=== PATIENT | male | born 1950 | race Caucasian/White ===

== ENCOUNTER 2016-11-19 15:37 | Observation (INO) | payer OTHER ==
--- NOTE | 2016-11-19 16:35 | RAD ---
EXAM: Chest,2 Views CLINICAL INDICATION: 66-year-old male status post ablation. TECHNIQUE: Two-view, PA and lateral projections of the chest were obtained. COMPARISON: None. FINDINGS: Unremarkable cardiac and mediastinal silhouette. Heart size is normal. Median sternotomy wires. Tortuous atherosclerotic thoracic aorta. Lungs are clear without focal opacity, pneumothorax or pleural effusions. The visualized bones are within normal limits. IMPRESSION: No acute cardiopulmonary abnormalities. Electronically signed by: Tamiko Brandt MD 11/19/2016 4:33 PM CDT Workstation: [id number]
[2016-11-19] MEDS ORDERED: SODIUM CHLORIDE 0.9% 1000ML 500 ML IVS ONE (17:13)
--- NOTE | 2016-11-19 17:46 | ED.PDOC ---
History of Present Illness - General Chief Complaint: Cardiovascular Problem Stated Complaint: Irregular heart rate/rhythm Time Seen by Provider: 11/19/16 15:53 Source: patient Exam Limitations: no limitations - History of Present Illness Initial Comments: the patient is a 66-year-old male presenting to the emergency room secondary tofeeling of mild fatigue associated with a heart rate below 40 when he checked his blood pressure today. [facility] and recently had a failed ablation done for PVCs approximately7 days ago. the patient was monitored for a further 3 days and then released with sotalol at 120 mg twice daily. 2 days after that the patient started feeling some fatigue. He does feel palpitations occasionally but that is not new. He has not had any syncope or near-syncope. He is not having any chest pain or significant shortness of breath. No new swelling. He is anticoagulated. Severity: mild Improving Factors: nothing Worsening Factors: nothing Associated Symptoms: malaise Allergies/Adverse Reactions: Allergies NATALIA Inhibitors Allergy (Verified 11/19/16 15:55) Other Causes his "throat to tickle" Review of Systems - Review of Systems Constitutional: States: malaise EENTM: States: no symptoms reported Respiratory: States: no symptoms reported Cardiology: States: palpitations Gastrointestinal/Abdominal: States: no symptoms reported Genitourinary: States: no symptoms reported Musculoskeletal: States: no symptoms reported Skin: States: no symptoms reported Neurological: States: no symptoms reported Endocrine: States: no symptoms reported Hematologic/Lymphatic: States: no symptoms reported Past Medical History (General) - Patient Medical History Hx Stroke: No Hx Cardiac Disorders: Yes - hypercholesterolemia; A fib Hx Congestive Heart Failure: No Hx Diabetes: Yes Hx Cancer: Yes - Skin CA Surgical History: colectomy, coronary bypass surgery - Vaccination History Hx Influenza Vaccination: Yes - 2015 Hx Pneumococcal Vaccination: Yes - Social History Hx Tobacco Use: No Family Medical History - Family History Father Living Status: Cause of : [place] Physical Exam - Physical Exam General Appearance: Alert, Comfortable, No apparent distress Eye Exam: bilateral normal Ears, Nose, Throat: hearing grossly normal, normal ENT inspection, normal pharynx Neck: non-tender, full range of motion, supple Cardiovascular/Chest: normal peripheral pulses, other - trace bilateral chronic edema. irregular rhythm Gastrointestinal/Abdominal: non tender - ., soft Back Exam: normal inspection, no CVA tenderness Extremity: normal range of motion, non-tender, normal inspection, no pedal edema , normal capillary refill Neurologic: potline monitor II-XII nml as tested, alert, normal mood/affect, oriented x 3 Skin Exam: normal color Comments: Vital Signs - 24 hr 11/19/16 11/19/16 15:42 17:15 Temperature 98.3 F Pulse Rate [ 36 L Apical] Respiratory 20 Rate Blood Pressure 128/68 144/62 [Left Arm] O2 Sat by Pulse 97 Oximetry Progress - Progress Progress: 11/19/16 17:48 the patient is a 66-year-old male presenting with significant bradycardia with a pulse down in the 30s but an adequate blood pressure. He appears to be perfusing adequately. He was recently started on a higher dose sotalol. I have discussed this patient with the ER physician at the [facility], Dr. Vivas, who has agreed to have the patientbe admitted here and observed overnight and restarted on a lower sotalol dose. The patient apparently has a appointment with his service center representative at the [place] later this month. He is additionally on colchicine as part of the treatment. Since that time the patient has been admitted here his pulse is actually increased from the mid 30s up to the low 50s. He is feeling better. The patient does have an elevation of his heart enzymes which is consistent with the six-hour ablation performed a week ago. It is however still recommended to repeat these enzymes later this day to make sure there is no upward trend, though one is not suspected. The plan will be to restart the patient on sotalol 80 mg twice a day tomorrow morning. - Results/Orders Results/Orders: Laboratory Tests 11/19/16 11/19/16 11/19/16 16:00 16:00 16:00 WBC 8.5 RBC 5.23 Hgb 14.9 Hct 44.9 MCV 85.8 MCH 28.5 MCHC 33.2 RDW 14.8 H Plt Count 192 MPV 8.4 Absolute Neuts (auto) 5.10 Absolute Lymphs (auto) 2.30 Absolute Monos (auto) 0.80 Absolute Eos (auto) 0.20 Absolute Basos (auto) 0.10 Neutrophils % 59.9 Lymphocytes % 27.0 Monocytes % 9.2 H Eosinophils % 2.6 Basophils % 1.3 PT 15.6 H INR 1.380 PTT (SP) 39.3 H Sodium 140 Potassium 4.1 Chloride 102 Carbon Dioxide 27 Anion Gap 15.1 BUN 43 H Creatinine 1.67 H BUN/Creatinine Ratio 25.7 H Random Glucose 126 H Serum Osmolality 291.8 Calcium 10.1 Magnesium 1.2 L Total Bilirubin 0.8 AST 20 ALT 27 Alkaline Phosphatase 123 H Creatine Kinase 186 H CK-MB (CK-2) 9.5 H* CK-MB (CK-2) % 5.11 H Troponin I 0.37 H* B-Natriuretic Peptide 374.0 H* Serum Total Protein 7.7 Albumin 4.1 Globulin 3.6 H Albumin/Globulin Ratio 1.1 TSH 0.17 L EKG shows bigeminy. There is mild expiratory left axis deviation. There is left atrial dilation and early right bundle branch pattern. Nonspecific ST segment changes. chest x-ray appears benign. Departure - Departure Clinical Impression: Bradycardia with 31-40 beats per minute Disposition: Admit Patient Decision To Admit - Decistion To Admit Decision to Admit Reason: Medical Nature Decision to Admit Date: 11/19/16 Decision to Admit Time: 17:51
--- NOTE | 2016-11-19 18:19 | HP ---
SUPERVISING PHYSICIAN: Efrain Abbott MD CHIEF COMPLAINT: Irregular heart rate. HISTORY OF PRESENT ILLNESS: Mr. Marlow is a 66 year-old male patient that initially presented to the Emergency Room secondary to just not feeling well with some mild fatigue with a noted heart rate below 40 when he checked his blood pressure at home. He is a patient of the [place] system and had recently had an ablation procedure done in efforts to alleviate chronic PVCs in the last 7 days with the procedure failing to succeed with the patient being started on Sotalol at 120 mg twice a day. Approximately 2 days after starting this medication, he started having some fatigue and noticed some palpitations occasionally but denied any syncopal or near syncopal episodes. He denied any chest pains or shortness of breath. He is on chronic anticoagulation therapy with Xarelto. In the Emergency Department, his EKG showed that he was having bigeminy with a possible early right bundle branch block but no nonspecific ST changes with a heart rate of 34. Laboratory studies showed CBC unremarkable. Coagulation studies an elevated PT/PTT, however, the patient is on Xarelto. His chemistries showed normal electrolytes but his BUN was elevated at 43, creatinine1 .67. It was also noted that he had a significant low magnesium at 1.2 as well as cardiac enzymes showing a troponin of 0.37 with a BNP of 374. Dr. Abbott, Emergency Room physician, contacted the [place] system and discussed with his breakfast supervisor, the patient's symptoms. It was Dr. Vivas, who recommended that the patient be admitted overnight for observation and restarted on a lower Sotalol dose of 80 mg b.i.d. compared to the initial 120 mg b.i.d. It was noted that he did have an elevation of his cardiac enzymes, however, he did have a well over 6- hour ablation performed within the last 7 days. Given the patient's symptomatic bradycardia and history, the patient is to be placed in observation. At time of admission to the medical/surgical floor, his heart rate was actually showing to be in the 80s and he was showing to be hemodynamically stable. PAST MEDICAL HISTORY: 1. Chronic arrhythmia with multifocal PVCs, just recently having ablation therapy that failed to succeed in alleviating symptoms with the patient being started on Sotalol. 2. Hypertension. 3. Type 2 diabetes mellitus on insulin. 4. History of gout. 5. B12 deficiency. 6. History of bilateral lower extremity edema. PAST SURGICAL HISTORY: 1. Quadruple bypass in 2008. 2. He had 18 inches of his colon removed in 2013 secondary to polyps. 3. Tonsillectomy and adenoidectomy as a child. CURRENT MEDICATIONS: 1. Sotalol 120 mg b.i.d. 2. Xarelto 20 mg daily. 3. Aspirin 81 mg daily. 4. Metformin 850 mg t.i.d. 5. Losartan 25 mg daily. 6. Humulin-N 37 units b.i.d. 7. Novolin-R 5 units subcutaneous daily. 8. Gabapentin 300 mg twice a day. 9. Lasix 40 mg daily. 10. B12, 1000 mcg daily. 11. Colchicine 0.6 mg twice a day. 12. Lipitor 40 mg at bedtime. ALLERGIES: NATLAIA INHIBITORS FAMILY HISTORY: Strong history of cardiovascular disease. SOCIAL HISTORY: The patient is retired, previously worked as a salesman for [employer]. He is a retired of [employer]. He is , has a history of smoking approximately one pack a day for over 20 years but quit smoking in 2008. He does note that he drinks alcohol on an occasional basis which includes a beer, tequila or whiskey. REVIEW OF SYSTEMS: PHYSICAL EXAMINATION: VITAL SIGNS: In the Emergency Room, heart rate 36 with a blood pressure of 126 /68 with [id number] pacing system 20, saturation 97%. Temperature 98.3. Upon admission to the medical/surgical floor, heart rate was 50s to 60s with blood pressure 110/80, saturation 96% on room air at rest. Admission weight 99.7 kg. GENERAL: The patient is well-nourished, well-hydrated, appears to be in no acute distress. HEENT: Tympanic membranes clear bilaterally. Oropharynx pink and moist without any lesions. NECK: Supple, non-tender with full range of motion. No jugular venous distention noted. CHEST: Lungs clear to auscultation bilaterally without any rhonchi, wheezes or rales. CARDIOVASCULAR: Irregular rate and rhythm with no appreciable murmurs, rubs, or gallops. ABDOMEN: Non-tender, soft but obese with positive bowel sounds. EXTREMITIES: No cyanosis, clubbing, or edema. NEUROLOGIC: Cranial nerves II through XII grossly intact. He was alert and oriented x 3. Facial features were symmetrical. Extraocular movements within normal limits. There was no nystagmus. There was no notable neuro motor or sensory deficits. LABORATORY: CBC showed a white count of 8.5, hemoglobin 14.9, hematocrit 44.9, platelet count 192,000, differential within normal limits. Coagulation studies showed a slightly elevated PT of 15.6, PTT 39.3. Chemistries showed normal electrolytes. Potassium 4.1, BUN elevated at 43, creatinine 1.67, glucose 93. Serum osmolality 291. Magnesium 1.2. Alkaline phosphatase elevated at 123. All other liver functions were within normal limits. CK was elevated at 186 with troponin of 0.37. BNP was 374. Urinalysis pending. RADIOLOGY: Chest x-ray 2-view in the Emergency Room and per radiology interpretation there was no acute cardiopulmonary abnormalities noted. ASSESSMENT: 1. Symptomatic bradycardia with a history of abnormal irregular heart beat having recently had an ablation procedure having failed to resolve abnormal. rhythms with the patient having been started on Sotalol at 120 mg daily felt t9o be the etiology of his bradycardia with no reported chest pain. 2. Elevated troponin in a patient with recently having, within the last week, extensive ablation therapy with the patient without any reported chest pains or shortness of breath on admission. 3. Hypertension. 4. Type 2 diabetes mellitus on insulin. 5. Gout. 6. History of bilateral lower extremity edema. 7. Renal insufficiency with unknown history, possibly felt to be secondary to prerenal azotemia, dehydration and some exacerbation from past procedures within the last 7 days requiring intravenous contrast. PLAN: The patient will be placed in observation tonight and started on Sotalol once his heart rate shows to be improving with new dosage noted to be at 80 mg b.i.d. from initial of 120 mg b.i.d. as per request of his breakfast supervisor. He will be on telemetry. We will plan to repeat his cardiac enzymes and monitor closely. Anticipate length of stay to be at least 1 to 2 days, allow at least a 24-hour period of time frame for him to show good response to new dosing of the Sotalol and to be showing to be stable prior to discharge. We will plan to start him on some IV fluids in effort to improve his renal function. Will repeat lab studies in the morning and until discharge , continue to monitor and treat appropriately. #[id number] [facility]
[2016-11-19] MEDS ORDERED: ACETAMINOPHEN 325 MG TAB PO PRN (18:33)
[2016-11-19] MEDS ORDERED: SODIUM CHLORIDE 0.9% (FLUSH) 10 ML SYG IV PRN (18:33)
[2016-11-19] MEDS ORDERED: DEXTROSE 50% 25 GM/50 ML SYG IV PRN (18:37)
[2016-11-19] MEDS ORDERED: GLUCAGON INJ 1 MG VIAL SUBCU PRN (18:37)
[2016-11-19] MEDS ORDERED: KCL 20MEQ/0.45% NS 1,000 ML IVS PRN (18:38)
[2016-11-19] MEDS ORDERED: IV SET AND CAP CHANGE INJ INJ SCH (19:00)
[2016-11-19] MEDS ORDERED: MAGNESIUM SULFATE PREMIX 2GM 2 GM in PREMIX BAG 1 BAG IVPB ONE (19:29)
[2016-11-19] MEDS ORDERED: ATORVASTATIN 20 MG TAB PO ONE (19:44)
[2016-11-19] MEDS ORDERED: MAGNESIUM SULFATE PREMIX 2GM 50 ML IVPB ONE (19:45)
[2016-11-19] MEDS ORDERED: NON-FORMULARY MEDICATION 1 EA MIS (Metformin Hcl [Metformin Hcl] 850 MG) PO SCH (20:30)
[2016-11-19] MEDS ORDERED: INSULIN,ISOP(HUMAN(NPH) 100 UNITS/ML PEN SUBCU ONE (20:47)
[2016-11-19] MEDS ORDERED: INSULIN NPH SC SCH (21:00)
[2016-11-19] MEDS ORDERED: NON-FORMULARY MEDICATION 1 EA MIS (Atorvastatin Calcium [Lipitor] 40 MG) PO SCH (21:00)
[2016-11-19] MEDS: COLCHICINE 0.6 MG TAB PO SCH (21:20)
[2016-11-19] MEDS: GABAPENTIN 300 MG CAP PO SCH (21:20)
[2016-11-19] MEDS: SOTALOL 80 MG TAB PO SCH (21:20)
[2016-11-19] MEDS: ATORVASTATIN 20 MG TAB PO SCH (21:22)
[2016-11-19] MEDS: metFORMIN HCL 500 MG TAB PO SCH (21:22)
[2016-11-19] MEDS: INSULIN LISPRO 100 UNITS/ML PEN SUBCU SCH (22:10)
[2016-11-19] MEDS: SODIUM CHLORIDE 0.9% (FLUSH) 10 ML SYG IV SCH (22:12)
[2016-11-20] MEDS ORDERED: MAGNESIUM SULFATE PREMIX 2GM 2 GM in PREMIX BAG 1 BAG IVPB ONE (07:10)
[2016-11-20] MEDS: INSULIN LISPRO 100 UNITS/ML PEN SUBCU SCH ×4 (07:33→21:18)
[2016-11-20] MEDS ORDERED: MAGNESIUM SULFATE PREMIX 2GM 50 ML IVPB ONE (07:34)
[2016-11-20] MEDS: metFORMIN HCL 500 MG TAB PO SCH ×3 (07:45→16:58)
[2016-11-20] MEDS: INSULIN,ISOP(HUMAN(NPH) 100 UNITS/ML PEN SUBCU SCH ×2 (08:34→21:16)
[2016-11-20] MEDS: GABAPENTIN 300 MG CAP PO SCH ×2 (08:39→21:18)
[2016-11-20] MEDS: CYANOCOBALAMIN 1,000 MCG TAB PO SCH (08:39)
[2016-11-20] MEDS: COLCHICINE 0.6 MG TAB PO SCH ×2 (08:39→21:18)
[2016-11-20] MEDS: FUROSEMIDE 40 MG TAB PO SCH (08:40)
[2016-11-20] MEDS: SOTALOL 80 MG TAB PO SCH ×2 (08:40→21:40)
[2016-11-20] MEDS: LOSARTAN POTASSIUM 25 MG TAB PO SCH (08:40)
[2016-11-20] MEDS: ASPIRIN EC 81 MG TAB PO SCH (08:40)
[2016-11-20] MEDS: SODIUM CHLORIDE 0.9% (FLUSH) 10 ML SYG IV SCH ×2 (10:54→21:19)
[2016-11-20] MEDS ORDERED: RIVAROXABAN 10 MG TAB PO SCH (17:00)
[2016-11-20] MEDS: ATORVASTATIN 20 MG TAB PO SCH (21:18)
[2016-11-21 06:20] VITALS: O2SAT 95
[2016-11-21] MEDS: INSULIN LISPRO 100 UNITS/ML PEN SUBCU SCH (07:12)
[2016-11-21] MEDS: metFORMIN HCL 500 MG TAB PO SCH (07:29)
[2016-11-21] MEDS ORDERED: MAGNESIUM SULFATE PREMIX 2GM 2 GM in PREMIX BAG 1 BAG IVPB ONE (07:35)
[2016-11-21] MEDS ORDERED: MAGNESIUM SULFATE PREMIX 2GM 50 ML IVPB ONE (07:46)
--- NOTE | 2016-11-21 08:34 | PN ---
DATE: 11/20/16 SUPERVISING PHYSICIAN: Efrain Abbott MD SUBJECTIVE: The patient is doing well, he has not had any abnormal rhythms through the night. His heart rate has been slowly improving. No chest pain or nausea. OBJECTIVE: VITAL SIGNS: Temperature 97.6, pulse 67, blood pressure 136/73, respirations 18 , saturation 94% on room air. I&O: Fairly well balanced. Weight 100.3 kg. CHEST: Lungs are clear to auscultation. HEART: Irregular rate and rhythm with a sinus rhythm noted on the monitor with a few PVCs improving to previous to admission. ABDOMEN: Obese, soft, non-tender, positive bowel sounds. EXTREMITIES: No cyanosis, clubbing, or edema. NEUROLOGIC: Alert and oriented x 3. LABORATORY: Chemistries today show normal electrolytes with potassium 3.9, BUN 39 which is down from 43. Creatinine has shown improvement at 1.3 compared to 1.67. Glucoses have been fairly well controlled from 93 to 222. He did have a troponin continuing to show elevation, second set, but had gone down. It was at 0.36. Magnesium showed some improvement, up to 1.7. Other liver functions showed to be within normal limits. RADIOLOGY: There are no additional radiographic studies. Telemetry continues to show sinus arrhythmia with some bigeminy rate in the 50s to 70s. ASSESSMENT: 1. Symptomatic bradycardia with a history of abnormal irregular heart beat having recently had an ablation procedure having failed to resolve abnormal. rhythms with the patient having been started initially on Sotalol at 120 mg daily resulting in some bradycardia but no reported chest pains requiring hospitalization to better control heart rate and close monitoring and interim while altering dosage. 2. Elevated troponin in a patient recently having, within the last week, extensive ablation therapy with the patient without any reported chest pains or shortness of breath on admission. 3. Hypertension. 4. Type 2 diabetes mellitus on insulin. 5. Gout. 6. History of bilateral lower extremity edema. 7. Renal insufficiency, likely secondary to previous imaging studies with contrast dye, showing some improvement after initiation of IV fluids with some exacerbation on admission from dehydration. PLAN: Will continue to observe the patient on telemetry. He has been saline locked as he is taking oral fluids adequately and has shown improvement in his kidney function. I did start his Sotalol 80 mg last night to continue at 80 mg twice a day. We will continue to monitor the patient for the next 24 hours with the dosing of the Sotalol to insure that he is going to show to be stable in regards to his rhythm and heart rate. Once shown to be clinically stable, the patient can be discharged to continue with Sotalol dosing at 80 mg twice a day and have close clinical followup at the [facility] with his cma or lpn. Until the , we will continue to monitor and treat appropriately. #[id number] MTDD
[2016-11-21] MEDS: CYANOCOBALAMIN 1,000 MCG TAB PO SCH (08:46)
[2016-11-21] MEDS: SOTALOL 80 MG TAB PO SCH (08:46)
[2016-11-21] MEDS: FUROSEMIDE 40 MG TAB PO SCH (08:47)
[2016-11-21] MEDS: COLCHICINE 0.6 MG TAB PO SCH (08:47)
[2016-11-21] MEDS: GABAPENTIN 300 MG CAP PO SCH (08:47)
[2016-11-21] MEDS: ASPIRIN EC 81 MG TAB PO SCH (08:47)
[2016-11-21] MEDS: LOSARTAN POTASSIUM 25 MG TAB PO SCH (08:51)
[2016-11-21] MEDS: INSULIN,ISOP(HUMAN(NPH) 100 UNITS/ML PEN SUBCU SCH (08:52)
[2016-11-21] MEDS: SODIUM CHLORIDE 0.9% (FLUSH) 10 ML SYG IV SCH (08:56)
[2016-11-21] MEDS ORDERED: MAGNESIUM OXIDE 400 MG TAB PO SCH (09:00)
[2016-11-21 10:25] VITALS: BP 125/67; TEMP 97.7
== END 2016-11-21 11:10 | disposition home or self-care (01) ==
LOC: ER 15:37 → MS 18:17
PROVIDERS: ADMIT Nurse Practitioner Family; ATTEND Nurse Practitioner Family
DX: I49.3 Ventricular premature depolarization (principal); E83.42 Hypomagnesemia; I10 Essential (primary) hypertension; E11.9 Type 2 diabetes mellitus without complications; M10.9 Gout, unspecified; R60.0 Localized edema; N28.9 Disorder of kidney and ureter, unspecified; E86.0 Dehydration; E53.8 Deficiency of other specified B group vitamins; Z79.01 Long term (current) use of anticoagulants; Z79.4 Long term (current) use of insulin; Z79.84 Long term (current) use of oral hypoglycemic drugs; Z79.82 Long term (current) use of aspirin; Z79.899 Other long term (current) drug therapy; Z88.8 Allergy status to other drugs, medicaments and biological substances; Z98.890 Other specified postprocedural states; Z95.1 Presence of aortocoronary bypass graft; Z86.010 Personal history of colon polyps; Z87.891 Personal history of nicotine dependence; Z82.49 Family history of ischemic heart disease and other diseases of the circulatory system
CPT/HCPCS: 36415 ×4; 36416 ×6; 71020; 80048; 80053 ×2; 82550 ×2; 82553 ×2; 82948 ×6; 83735 ×3; 83880; 84443; 84484 ×2; 85025; 85610; 85730; 93005 ×3; 96361 ×2; 96365; 96366 ×2; 96372 ×3; 99284; G0378; J1815 ×2; J3475 ×3; J3480; J7030

== ENCOUNTER 2018-04-24 10:58 | Emergency (ER) | payer OTHER ==
--- NOTE | 2018-04-24 13:02 | RAD ---
Two-view chest. Two-view left RIBS. Indication: fall 3 d ago with ant left rib pain Comparison: November 19, 2016 Impression: Median sternotomy wires. Mild cardiomegaly. Atherosclerosis aorta. Lungs clear. No pneumothorax. A subtle fracture of the lateral left 10th rib noted. Electronically signed by: Rich Angulo MD 04/24/2018 1:00 PM [employer]
--- NOTE | 2018-04-24 13:02 | RAD ---
Two-view chest. Two-view left RIBS. Indication: fall 3 d ago with ant left rib pain Comparison: November 19, 2016 Impression: Median sternotomy wires. Mild cardiomegaly. Atherosclerosis aorta. Lungs clear. No pneumothorax. A subtle fracture of the lateral left 10th rib noted. Electronically signed by: Rich Angulo MD 04/24/2018 1:00 PM [employer]
--- NOTE | 2018-04-24 13:08 | ED.PDOC ---
History of Present Illness - General Chief Complaint: Trauma Stated Complaint: LEFT RIB PAIN Time Seen by Provider: 04/24/18 12:18 Source: patient Exam Limitations: no limitations - History of Present Illness Initial Comments: the patient is a 67-year-old male presenting to the emergency room secondary to left anterior chest wall pain after he fell 3 days ago and landed on a stump. he does have mild bruising. No crepitus. Lung ennis are clear. He does have pain with any movement or deep breaths. Severity: moderate Improving Factors: nothing Worsening Factors: movement Associated Symptoms: denies symptoms Allergies/Adverse Reactions: Allergies NATALIA Inhibitors Allergy (Verified 04/24/18 12:10) Other Causes his "throat to tickle" Home Medications: Ambulatory Orders Aspirin [Aspirin EC] 81 mg PO DAILY 11/19/16 Atorvastatin Calcium [Lipitor] 40 mg PO BEDTIME 11/19/16 Colchicine 0.6 mg PO BID 11/19/16 Cyanocobalamin [B12] 1,000 mcg PO DAILY 11/19/16 Furosemide [Lasix] 40 mg PO DAILY 11/19/16 Gabapentin 300 mg PO BID 11/19/16 Insulin NPH (Human) (Isophane) [Humulin N] 37 unit SC BID 11/19/16 Insulin Regular (Human) [Novolin R] 5 unit SC BID 11/19/16 Losartan Potassium 25 mg PO DAILY 11/19/16 Metformin HCl 850 mg PO TIDFD 11/19/16 Rivaroxaban [Xarelto] 20 mg PO 1700 11/19/16 Magnesium Oxide (mg Supplement [Magnesium] 500 mg PO DAILY #30 tab 11/21/16 Sotalol HCl [Betapace] 80 mg PO BID #14 tab 11/21/16 Review of Systems - Review of Systems Constitutional: States: no symptoms reported EENTM: States: no symptoms reported Respiratory: States: no symptoms reported Cardiology: States: no symptoms reported Gastrointestinal/Abdominal: States: no symptoms reported Genitourinary: States: no symptoms reported Musculoskeletal: States: see HPI Skin: States: no symptoms reported Neurological: States: no symptoms reported Endocrine: States: no symptoms reported All other Systems: No Change from Baseline Past Medical History (General) - Patient Medical History Hx Seizures: No Hx Stroke: No Hx Asthma: No Hx of COPD: No Hx Cardiac Disorders: Yes - hypercholesterolemia; A fib Hx Congestive Heart Failure: No Hx Pacemaker: No Hx Hypertension: Yes Hx Diabetes: Yes Hx Cancer: No Hx Hepatitis C: No Hx MRSA: No Surgical History: coronary bypass surgery - Vaccination History Hx Tetanus, Diphtheria Vaccination: Yes Hx Influenza Vaccination: Yes Hx Pneumococcal Vaccination: Yes Immunizations Up to Date: Yes - Social History Hx Tobacco Use: No Hx Alcohol Use: Yes - SOCIAL Hx Substance Use: No Hx Substance Use Treatment: No Hx Depression: No Hx Physical Abuse: No Hx Emotional Abuse: No Family Medical History - Family History Father Living Status: Cause of : [place] Physical Exam - Physical Exam General Appearance: Alert, Comfortable, No apparent distress Eye Exam: bilateral normal Ears, Nose, Throat: hearing grossly normal, normal pharynx Neck: full range of motion, supple Respiratory: lungs clear, normal breath sounds, no respiratory distress, no accessory muscle use, other - left anterior chest wall discomfort palpation. There is mild bruising present. No crepitus. Cardiovascular/Chest: normal peripheral pulses, no edema, other - regular rate Peripheral Pulses: radial,right: 2+, radial,left: 2+ Gastrointestinal/Abdominal: non tender, soft Rectal Exam: deferred Back Exam: no CVA tenderness, no vertebral tenderness Extremity: non-tender, normal inspection, no pedal edema, normal capillary refill Neurologic: dressmaker helper II-XII nml as tested, alert, normal mood/affect, oriented x 3 Skin Exam: normal color Comments: Vital Signs - 24 hr 04/24/18 04/24/18 12:04 12:11 Temperature 96.4 F L Pulse Rate [ 81 MONITOR] Respiratory 14 14 Rate Blood Pressure 113/65 [RA] O2 Sat by Pulse 94 L Oximetry Progress - Progress Progress: 04/24/18 13:07 the patient is a 67-year-old male presenting to the emergency room with left anterior rib pain after a fall a few days ago. X-ray shows a nondisplaced 10th rib fracture. Lung ennis are clear underneath. He can continue taking his Motrin as needed. Topical heat may also help. ER warnings were given. Keep routine follow-up with primary care doctor. - EKG/XRAY/CT CT Ordered: No CT Interpretation Call Back: No Departure - Departure Clinical Impression: Closed traumatic nondisplaced fracture of rib Disposition: Discharge to Home or Self Care Condition: Good Departure Forms: ED Discharge - Pt. Copy, Patient Portal Self Enrollment Diet: diabetic diet Activity: increase activity as tolerated Home Medications: Ambulatory Orders Aspirin [Aspirin EC] 81 mg PO DAILY 11/19/16 Atorvastatin Calcium [Lipitor] 40 mg PO BEDTIME 11/19/16 Colchicine 0.6 mg PO BID 11/19/16 Cyanocobalamin [B12] 1,000 mcg PO DAILY 11/19/16 Furosemide [Lasix] 40 mg PO DAILY 11/19/16 Gabapentin 300 mg PO BID 11/19/16 Insulin NPH (Human) (Isophane) [Humulin N] 37 unit SC BID 11/19/16 Insulin Regular (Human) [Novolin R] 5 unit SC BID 11/19/16 Losartan Potassium 25 mg PO DAILY 11/19/16 Metformin HCl 850 mg PO TIDFD 11/19/16 Rivaroxaban [Xarelto] 20 mg PO 1700 11/19/16 Magnesium Oxide (mg Supplement [Magnesium] 500 mg PO DAILY #30 tab 11/21/16 Sotalol HCl [Betapace] 80 mg PO BID #14 tab 11/21/16 Additional Instructions: the patient is a 67-year-old male presenting to the emergency room with left anterior rib pain after a fall a few days ago. X-ray shows a nondisplaced 10th rib fracture. Lung ennis are clear underneath. He can continue taking his Motrin as needed. Topical heat may also help. ER warnings were given. Keep routine follow-up with primary care doctor.
[2018-04-24 13:16] VITALS: BP 143/86; TEMP 97.5; O2SAT 96
== END 2018-04-24 13:14 | disposition home or self-care (01) ==
LOC: ER 10:58
DX: S22.32XA Fracture of one rib, left side, initial encounter for closed fracture (principal); E78.00 Pure hypercholesterolemia, unspecified; I48.91 Unspecified atrial fibrillation; I10 Essential (primary) hypertension; E11.9 Type 2 diabetes mellitus without complications; Z95.1 Presence of aortocoronary bypass graft; Z79.899 Other long term (current) drug therapy; Z88.8 Allergy status to other drugs, medicaments and biological substances; W01.198A Fall on same level from slipping, tripping and stumbling with subsequent striking against other object, initial encounter; Y92.9 Unspecified place or not applicable